=== PATIENT | male | born 1980 | race Caucasian/White ===

== ENCOUNTER 2019-01-16 15:49 | Emergency (ER) | payer OTHER ==
[~2019-01-16] VITALS: Ht 160 cm; Wt 56.7 kg
[2019-01-16] MEDS ORDERED: CLONIDINE HCL0.2 M2 PO (16:10)
[2019-01-16] MEDS ORDERED: AMITRIPTYLINE H10 M1 PO (16:10)
[2019-01-16 16:19] LABS: ABSOLUTE NEUTROPHILS 6.7 thou/uL (1.4-8.2); BASOPHILS 1.2 % (0.0-2.0); EOSINOPHILS 2.6 % (0.0-3.0); HEMATOCRIT 44.4 % (42.0-52.0); HEMOGLOBIN 15.2 gm/dL (14.0-18.0); LYMPHOCYTES 22.7 % (24.0-44.0); MCHC 34.3 g/dL (28.0-37.0); MCV 96.4 fL (80.0-100.0); MONOCYTES 5.9 % (1.0-8.0); PLATELET COUNT 409 thou/uL (150-400); POLYS 67.6 % (36.0-66.0); RDW 14.3 % (10.5-14.5); WBC 9.9 thou/uL (4.0-11.0)
[2019-01-16 16:22] LABS: ANION GAP 11 mmol/L (7-16); BUN 6 mg/dL (7-18); CHLORIDE 98 mmol/L (98-107); CO2 26 mmol/L (21-32); CREATININE 0.8 mg/dL (0.7-1.3); GLUCOSE 109 mg/dL (74-106); SODIUM 135 mmol/L (136-145)
[2019-01-16 16:31] LABS: MAGNESIUM 1.8 mg/dL (1.8-2.4); TROPONIN-I <0.06 ng/mL (<0.06)
[2019-01-16 16:53] VITALS: BP 116/68
--- NOTE | 2019-01-17 08:04 | EKG ---
[address] [address] ELECTROCARDIOGRAM REPORT Name: DARSHAN FLYNN Room #: DEP Joseph#: [id number] Admission: 01/16/19 Attend Phys: Discharge: 01/16/19 Date of : 82 Report #: [id number] THIS REPORT FOR: //name// [facility] ED Test Date: 2019-01-16 Test Time: 15:53:52 Pat Name: DARSHAN FLYNN Department: Room: Gender: Stop Attacher: CHANTAL : 1980 Requested By: Osvaldo Bustillos Order Number: [id number] MD: Rodolfo Black Measurements Intervals [place] Rate: 112 P: 33 NH: 134 QRS: 28 QRSD: 85 T: 53 QT: 323 QTc: 441 Interpretive Statements Sinus tachycardia Otherwise normal tracing No previous ECG available for comparison Electronically Signed On 01-17-2019 8:04:39 [employer] by Rodolfo Black [email or web address] <ELECTRONICALLY SIGNED> By: Rodolfo Black MD, [facility] 01/17/19 0804 [id number] 1553 Rodolfo Black MD, FACC /EPI
== END 2019-01-16 18:12 | disposition home or self-care (01) ==
LOC: ER 15:49
PROVIDERS: Emergency Medicine
DX: F10.129 Alcohol abuse with intoxication, unspecified (principal); R07.89 Other chest pain; R42 Dizziness and giddiness; I10 Essential (primary) hypertension; J45.909 Unspecified asthma, uncomplicated; F17.210 Nicotine dependence, cigarettes, uncomplicated